=== PATIENT | male | born 1990 | race Caucasian/White ===

== ENCOUNTER 2020-12-30 19:53 | Emergency (ER) | payer OTHER ==
[~2020-12-30] VITALS: Ht 170.2 cm; Wt 68.0 kg
[2020-12-30 20:08] VITALS: BP 125/74
--- NOTE | 2020-12-30 20:11 | NUR ---
TO LOBBY A/W BED AMBULATORY
[2020-12-30] MEDS ORDERED: KETOROLAC 15 MG/ML VIAL IM ONE (21:10)
[2020-12-30] MEDS ORDERED: methocarbamoL 500 MG TAB PO ONE (21:10)
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
--- NOTE | 2020-12-30 22:03 | NUR ---
TO CT VIA W/C
--- NOTE | 2020-12-30 22:14 | NUR ---
RETURNED FROM CT
[2020-12-30] MEDS ORDERED: HYDROcodone/APAP 5/325 MG 1 TAB TAB PO ONE (22:20)
[2020-12-30] MEDS ORDERED: METH-1681 PO (22:57)
[2020-12-30 23:20] VITALS: BP 125/74
--- NOTE | 2020-12-30 23:20 | NUR ---
PAIN IS EASING AND IS READY FOR DISCHARGEPatient discharged with v/s stable. Written and verbal after care instructions given and explained. Patient alert, oriented and verbalized understanding of instructions. Ambulatory with steady gait. All questions addressed prior to discharge. ID band removed. Patient advised to follow up with PMD. Rx of ROBAXIN given. Patient educated on indication of medication including possible reaction and side effects. Opportunity to ask questions provided and answered.
== END 2020-12-30 23:20 | disposition home or self-care (01) ==
LOC: MED 19:53
DX: S29.9XXA Unspecified injury of thorax, initial encounter (principal); S39.91XA Unspecified injury of abdomen, initial encounter; H57.12 Ocular pain, left eye; V89.2XXA Person injured in unspecified motor-vehicle accident, traffic, initial encounter; Y93.89 Activity, other specified; Y92.89 Other specified places as the place of occurrence of the external cause; Y99.8 Other external cause status
CPT/HCPCS: 71046; 71250; 73000; 73080; 74176; 96372; 99284; J1885

== ENCOUNTER 2021-01-30 00:35 | Emergency (ER) | payer OTHER ==
[~2021-01-30] VITALS: Ht 170.2 cm; Wt 66.7 kg
[~2021-01-30 00:35] MED LIST: METH-1681 PO
[2021-01-30 00:38] VITALS: BP 104/54
--- NOTE | 2021-01-30 00:44 | NUR ---
PT AMBULATORY TO BED #8
--- NOTE | 2021-01-30 00:45 | NUR ---
VISUAL ACUITY FOLLOWS: RT 20/20, LT 20/20, BOTH 20/15
[2021-01-30 00:49] VITALS: BP 104/54
--- NOTE | 2021-01-30 00:51 | NUR ---
PATIENT PRESENTS TO ED WITH SWOLLEN LEFT EYE . PT DENIES ANY ALLERGIES, ANY PAIN. PT STATES, "I JUST WOKE UP WITH A SWOLLEN LEFT EYE." DENIES N/V/D; SKIN IS PINK/WARM/DRY; AAOX4 WITH EVEN AND STEADY GAIT; LUNGS CLEAR BL; HR EVEN AND REGULAR; PT DENIES ANY FEVER, CP, SOB, OR COUGH AT THIS TIME; VSS; PATIENT POSITIONED FOR COMFORT; HOB ELEVATED; BEDRAILS UP X2; BED DOWN. ER MD MADE AWARE OF PT STATUS. NKA PMH: DENIES
[2021-01-30] MEDS ORDERED: POLY10SO OP (01:20)
--- NOTE | 2021-01-30 01:26 | NUR ---
Patient discharged with v/s stable. Written and verbal after care instructions given and explained. Patient alert, oriented and verbalized understanding of instructions. Ambulatory with steady gait. All questions addressed prior to discharge. ID band removed. Patient advised to follow up with PMD. Rx of POLYMYXIN EYE DROPS given. Patient educated on indication of medication including possible reaction and side effects. Opportunity to ask questions provided and answered.
== END 2021-01-30 01:26 | disposition home or self-care (01) ==
LOC: MED 00:35
DX: H01.004 Unspecified blepharitis left upper eyelid (principal)
CPT/HCPCS: 99283